=== PATIENT | male | born 1970 | race Asian ===

== ENCOUNTER 2023-08-09 16:26 | Emergency (ER) | payer BC ==
[~2023-08-09] VITALS: Ht 188 cm; Wt 108.4 kg
[2023-08-09 16:52] VITALS: BP_SYST 136; PULSE 69; RESP 16; TEMP 97.6; O2SAT 97
[2023-08-09 18:49] LABS: BASOPHILS # (AUTO) 0.1 K/uL (0.0-0.2); BASOPHILS % (AUTO) 0.9 % (0.0-2.0); EOSINOPHILS # (AUTO) 0.2 K/uL (0.0-0.4); EOSINOPHILS % (AUTO) 2.6 % (0.0-4.0); HEMATOCRIT 37.6 % (36-54); HEMOGLOBIN 11.9 g/dL (14.0-18.0); LYMPHOCYTES # (AUTO) 1.7 K/uL (1.0-5.5); LYMPHOCYTES % (AUTO) 18.9 % (20.5-51.5); MEAN CORPUSCULAR HEMOGLOBIN 23 pg (27-31); MEAN CORPUSCULAR HGB CONC 32 % (32-36); MEAN CORPUSCULAR VOLUME 74 fL (79.0-98.0); MONOCYTES # (AUTO) 0.7 K/uL (0.0-1.0); MONOCYTES % (AUTO) 7.7 % (1.7-9.3); NEUTROPHILS # (AUTO) 6.1 K/uL (1.8-7.7); NEUTROPHILS % (AUTO) 69.9 % (40.0-70.0); PLATELET COUNT (AUTO) 355 K/uL (130-430); RED BLOOD CELL COUNT(AUTO) 5.08 MIL/uL (4.2-6.2); WHITE BLOOD COUNT (AUTO) 8.8 K/uL (4.8-10.8)
[2023-08-09 19:06] LABS: BILIRUBIN,URINE 1+ (NEGATIVE); CLARITY/URINE CLEAR (CLEAR); COLOR,URINE YELLOW (YELLOW); GLUCOSE,URINE 3+ (NEGATIVE); KETONES,URINE 2+ (NEGATIVE); LEUKOCYTE ESTERASE ,URINE NEGATIVE (NEGATIVE); NITRITE, URINE NEGATIVE (NEGATIVE); PROTEIN URINE NEGATIVE (NEGATIVE); UROBILINOGEN,URINE 0.2 (0.2-1.0)
[2023-08-09 19:06] LABS: CREATININE 0.84 mg/dL (0.55-1.30); POTASSIUM 3.9 mmol/L (3.5-5.1)
[2023-08-09 19:11] LABS: ALBUMIN 3.4 g/dL (3.4-4.8); TOTAL BILIRUBIN 0.5 mg/dL (0.0-1.0); TOTAL PROTEIN, SERUM 8.5 g/dL (6.4-8.3)
[2023-08-09 19:15] LABS: BLOOD, URINE TRACE (NEGATIVE)
[2023-08-09 19:33] LABS: HEMOGLOBIN A1C 7.32 % (<5.7)
[2023-08-09 19:34] LABS: BACTERIA,URINE None Seen /HPF (None Seen)
[2023-08-09] MEDS ORDERED: CYCL10TA24 PO (19:43)
[2023-08-09] MEDS ORDERED: ACET325T53 PO (19:44)
[2023-08-09 19:46] VITALS: BP_SYST 136; PULSE 69; RESP 16; TEMP 97.6; O2SAT 97
== END 2023-08-09 19:46 | disposition home or self-care (01) ==
LOC: SED 16:26
DX: S42.352A Displaced comminuted fracture of shaft of humerus, left arm, initial encounter for closed fracture (principal); E11.9 Type 2 diabetes mellitus without complications; I10 Essential (primary) hypertension; Z79.899 Other long term (current) drug therapy; W01.0XXA Fall on same level from slipping, tripping and stumbling without subsequent striking against object, initial encounter; Y93.89 Activity, other specified; Y92.89 Other specified places as the place of occurrence of the external cause; Y99.8 Other external cause status
CPT/HCPCS: 36415; 73200-TC; 76376; 80053; 81000; 81001; 81015; 83037; 85025; 99284

== ENCOUNTER 2023-08-11 05:41 | Inpatient (IN) | payer BC, MEDICAID ==
[~2023-08-11] VITALS: Ht 188 cm; Wt 108.4 kg
[2023-08-11] VITALS (10 sets, daily range): BP systolic 120–144; PULSE 77–104; RESP 16–18; TEMP 97.2–97.8; O2SAT 78–98
[~2023-08-11 05:41] MED LIST: ACET325T53 PO; CYCL10TA24 PO
[2023-08-11] MEDS ORDERED: CYCL10TA24 PO (06:12)
[2023-08-11] MEDS ORDERED: ENAL2.5T17 (06:19)
[2023-08-11] MEDS ORDERED: ERTU15TA PO (06:19)
[2023-08-11] MEDS ORDERED: FLAS1KIT (06:19)
[2023-08-11] MEDS ORDERED: ROSU10TA29 (06:19)
[2023-08-11] MEDS ORDERED: DULO30CA52 PO (06:19)
[2023-08-11] MEDS ORDERED: ROSU20TA73 PO (06:19)
[2023-08-11] MEDS ORDERED: DILT-33 PO (06:19)
[2023-08-11] MEDS ORDERED: GLIP5TAB13 PO (06:19)
[2023-08-11] MEDS ORDERED: METF-381 PO (06:19)
[2023-08-11] MEDS ORDERED: ASPI-1393 PO (06:19)
[2023-08-11 06:42] LABS: BASOPHILS # (AUTO) 0.1 K/uL (0.0-0.2); BASOPHILS % (AUTO) 0.7 % (0.0-2.0); EOSINOPHILS # (AUTO) 0.2 K/uL (0.0-0.4); EOSINOPHILS % (AUTO) 2.2 % (0.0-4.0); HEMATOCRIT 36.4 % (36-54); HEMOGLOBIN 11.6 g/dL (14.0-18.0); LYMPHOCYTES # (AUTO) 1.6 K/uL (1.0-5.5); LYMPHOCYTES % (AUTO) 15.8 % (20.5-51.5); MEAN CORPUSCULAR HEMOGLOBIN 24 pg (27-31); MEAN CORPUSCULAR HGB CONC 32 % (32-36); MEAN CORPUSCULAR VOLUME 74 fL (79.0-98.0); MONOCYTES # (AUTO) 0.8 K/uL (0.0-1.0); MONOCYTES % (AUTO) 7.7 % (1.7-9.3); NEUTROPHILS # (AUTO) 7.3 K/uL (1.8-7.7); NEUTROPHILS % (AUTO) 73.6 % (40.0-70.0); PLATELET COUNT (AUTO) 373 K/uL (130-430); RED BLOOD CELL COUNT(AUTO) 4.89 MIL/uL (4.2-6.2); RED CELL DISTRIBUTION WIDTH 16.4 % (9.0-15.0); WHITE BLOOD COUNT (AUTO) 9.9 K/uL (4.8-10.8)
[2023-08-11 06:53] LABS: CREATININE 0.78 mg/dL (0.55-1.30); POTASSIUM 4.1 mmol/L (3.5-5.1)
[2023-08-11 06:57] LABS: ALBUMIN 3.3 g/dL (3.4-4.8); TOTAL BILIRUBIN 0.5 mg/dL (0.0-1.0); TOTAL PROTEIN, SERUM 8.7 g/dL (6.4-8.3)
[2023-08-11 06:58] LABS: PROTHROMBIN TIME 10.1 SECS (9.5-12.5)
[2023-08-11 07:09] LABS: BILIRUBIN,URINE 1+ (NEGATIVE); CLARITY/URINE CLEAR (CLEAR); COLOR,URINE YELLOW (YELLOW); GLUCOSE,URINE 3+ (NEGATIVE); KETONES,URINE 3+ (NEGATIVE); LEUKOCYTE ESTERASE ,URINE NEGATIVE (NEGATIVE); NITRITE, URINE NEGATIVE (NEGATIVE); PROTEIN URINE NEGATIVE (NEGATIVE); UROBILINOGEN,URINE 0.2 (0.2-1.0)
[2023-08-11 07:12] LABS: BLOOD, URINE TRACE (NEGATIVE)
[2023-08-11 07:46] LABS: BACTERIA,URINE FEW /HPF (None Seen); MUCUS,URINE 1+ /LPF (None Seen)
[2023-08-11] MEDS: D5/0.45 NS 1,000 ML IV SCH ×2 (08:25→16:47)
[2023-08-11] MEDS ORDERED: KETOROLAC TROMETHAMINE 30 MG VIAL IVP PRN (08:30)
[2023-08-11] MEDS ORDERED: KETOROLAC TROMETHAMINE 30 MG VIAL ONE ×2 (08:38→10:22)
[2023-08-11] MEDS ORDERED: BUPIVACAINE /PF 0.25% 30 ML VIAL INJ ONE (10:22)
[2023-08-11] MEDS ORDERED: MIDAZOLAM HCL/PF 2 MG/2 ML SYRINGE ONE (10:22)
[2023-08-11] MEDS ORDERED: SUGAMMADEX SODIUM 200 MG/2 ML VIAL IV ONE (10:22)
[2023-08-11] MEDS ORDERED: NS IRRIG SOLN 1000 ML IR ONE (10:22)
[2023-08-11] MEDS ORDERED: DEXAMETHASONE SOD PHOSPHATE 4 MG/ML VIAL ONE (10:22)
[2023-08-11] MEDS ORDERED: ONDANSETRON HCL 4 MG/2 ML VIAL ONE (10:22)
[2023-08-11] MEDS ORDERED: DESFLURANE 15 MIN GAS INH ONE (10:22)
[2023-08-11] MEDS ORDERED: LR 1,000 ML IV.SOLN IV ONE (10:22)
[2023-08-11] MEDS ORDERED: WATER FOR IRRIGATION,STERILE 1,000 ML IRRIG.SOLN IR ONE (10:22)
[2023-08-11] MEDS ORDERED: fentaNYL CITRATE/PF 100 MCG/2 ML AMP ONE (10:22)
[2023-08-11] MEDS ORDERED: ROCURONIUM BROMIDE 10 MG/ML (ZEMURON) ONE (10:22)
[2023-08-11] MEDS ORDERED: PROPOFOL 200MG/ 20ML VIAL (DIPRIVAN) IV ONE (10:22)
[2023-08-11] MEDS ORDERED: NALOXONE HCL 0.4 MG/ML AMP (NARCAN) IVP PRN ×3 (10:30)
[2023-08-11] MEDS ORDERED: ACETAMINOPHEN 325 MG TABLET PO PRN ×2 (10:30→12:45)
[2023-08-11] MEDS ORDERED: ONDANSETRON HCL 4 MG/2 ML VIAL IVP PRN (10:30)
[2023-08-11] MEDS ORDERED: HYDROcodone/ACETAMIN 5-325 MG TAB (NORCO/ VICODIN) PO PRN ×2 (10:30→13:00)
[2023-08-11] MEDS ORDERED: MORPHINE 2 MG/ML INJ. SYRINGE IVP PRN (10:30)
[2023-08-11] MEDS ORDERED: LORazepam 2 MG/ML VIAL IVP PRN (10:30)
[2023-08-11] MEDS ORDERED: MIDAZOLAM HCL 2 MG/2 ML VIAL (VERSED) IVP PRN (11:30)
[2023-08-11] MEDS ORDERED: hydrALAZINE HCL 20 MG/ML VIAL IVP PRN (11:30)
[2023-08-11] MEDS ORDERED: HYDROmorphone 1 MG/ML INJ. CARTRIDGE IVP PRN (11:30)
[2023-08-11] MEDS ORDERED: METOCLOPRAMIDE HCL 10 MG/2 ML VIAL IVP PRN (11:30)
[2023-08-11] MEDS ORDERED: LR 1,000 ML IV SCH (11:30)
[2023-08-11] MEDS ORDERED: LABETALOL 100 MG/ 20ML VIAL IVP PRN (11:30)
[2023-08-11] MEDS ORDERED: MEPERIDINE HCL/PF 25 MG/ML DISP.SYRIN IVP PRN (11:30)
[2023-08-11] MEDS ORDERED: ACETAMINOPHEN I.V. 1000 MG 100 ML IV ONE (11:54)
[2023-08-11] MEDS ORDERED: CYCLOBENZAPRINE HCL 10 MG TABLET (FLEXERIL) PO SCH (12:00)
[2023-08-11] MEDS ORDERED: HYDROmorphone 1 MG/ML INJ. CARTRIDGE ONE ×3 (13:35→14:41)
[2023-08-11] MEDS: HYDROmorphone 1 MG/ML INJ. CARTRIDGE IVP PRN ×5 (13:36→14:42)
[2023-08-11] MEDS ORDERED: IBUPROFEN 600 MG TABLET PO PRN (17:15)
[2023-08-11] MEDS ORDERED: cefTRIAXone 1 GM IVPB PREMIX 50 ML IV SCH (18:00)
[2023-08-11] MEDS: metFORMIN HCL 500 MG TABLET PO SCH (20:53)
[2023-08-11] MEDS ORDERED: ENALAPRIL MALEATE Non-Formular 5 MG TABLET PO SCH (21:00)
[2023-08-11] MEDS ORDERED: ASPIRIN 81 MG TABLET(ECOTRIN) PO SCH (21:00)
[2023-08-11] MEDS ORDERED: CYCLOBENZAPRINE HCL 10 MG TABLET (FLEXERIL) PO PRN (21:00)
[2023-08-11] MEDS ORDERED: ATORVASTATIN 20 MG TABLET PO SCH (21:00)
[2023-08-11] MEDS ORDERED: METFORMIN HCL PO SCH (21:00)
[2023-08-11] MEDS: INSULIN REGULAR, HUMAN 100 UNITS/ML, 3 ML VIAL (humuLIN R) SUBCUT PRN (21:11)
[2023-08-11] MEDS: CEFAZOLIN 2 GM IVPB PREMIX 50 ML IV SCH (22:21)
[2023-08-12 00:46] VITALS: BP_SYST 123; PULSE 89; RESP 18; TEMP 97.9; O2SAT 99
[2023-08-12] MEDS: D5/0.45 NS 1,000 ML IV SCH ×2 (02:41→12:15)
[2023-08-12 06:09] LABS: BASOPHILS % (AUTO) 0.2 % (0.0-2.0); HEMATOCRIT 30.9 % (36-54); HEMOGLOBIN 9.7 g/dL (14.0-18.0); LYMPHOCYTES # (AUTO) 0.8 K/uL (1.0-5.5); LYMPHOCYTES % (AUTO) 11.1 % (20.5-51.5); MEAN CORPUSCULAR HEMOGLOBIN 23 pg (27-31); MEAN CORPUSCULAR HGB CONC 32 % (32-36); MEAN CORPUSCULAR VOLUME 74 fL (79.0-98.0); MONOCYTES # (AUTO) 0.7 K/uL (0.0-1.0); MONOCYTES % (AUTO) 8.7 % (1.7-9.3); NEUTROPHILS # (AUTO) 6.1 K/uL (1.8-7.7); PLATELET COUNT (AUTO) 359 K/uL (130-430); RED CELL DISTRIBUTION WIDTH 16.2 % (9.0-15.0); WHITE BLOOD COUNT (AUTO) 7.6 K/uL (4.8-10.8)
[2023-08-12 06:48] LABS: CALCIUM 9.3 mg/dL (8.4-11.0); CREATININE 0.68 mg/dL (0.55-1.30); POTASSIUM 4.4 mmol/L (3.5-5.1)
[2023-08-12] MEDS: CEFAZOLIN 2 GM IVPB PREMIX 50 ML IV SCH (06:50)
[2023-08-12 08:01] VITALS: BP_SYST 140; PULSE 101; RESP 16; TEMP 98.6; O2SAT 98
[2023-08-12] MEDS: metFORMIN HCL 500 MG TABLET PO SCH (08:23)
[2023-08-12] MEDS ORDERED: ERTUGLIFLOZIN PIDOLATE PO SCH (09:00)
[2023-08-12] MEDS ORDERED: DILTIAZEM HCL 180 MG CAP.SR.24H PO SCH (09:00)
[2023-08-12] MEDS ORDERED: ASPIRIN 81 MG TABLET(ECOTRIN) PO SCH (09:00)
[2023-08-12] MEDS ORDERED: EMPAGLIFLOZIN 10 MG TABLET PO SCH (09:00)
[2023-08-12] MEDS ORDERED: DULoxetine HCL 30 MG CAPSULE.DR (CYMBALTA) PO SCH (09:00)
[2023-08-12] MEDS ORDERED: ATORVASTATIN 20 MG TABLET PO SCH (09:00)
[2023-08-12] MEDS ORDERED: glipiZIDE XL 5 MG TAB ( GLUCOTROL XL) PO SCH (09:00)
[2023-08-12] MEDS ORDERED: NON-FORMULARY MEDICATION (Rosuvastatin Calcium 1 TAB) PO SCH (09:00)
[2023-08-12] MEDS ORDERED: lisinopriL 5 MG TABLET PO SCH (09:00)
[2023-08-12 10:54] VITALS: O2SAT 97
[2023-08-12] MEDS: INSULIN REGULAR, HUMAN 100 UNITS/ML, 3 ML VIAL (humuLIN R) SUBCUT PRN (11:34)
[2023-08-12] MEDS ORDERED: IBUP-1969 PO (11:41)
[2023-08-12 12:00] VITALS: BP_SYST 135; PULSE 116; RESP 18; TEMP 98.8; O2SAT 97
[2023-08-12 14:03] VITALS: BP_SYST 136; PULSE 109; PULSE 120; RESP 18; TEMP 98.4; O2SAT 98
== END 2023-08-12 14:25 | disposition home or self-care (01) | DRG 315 ==
LOC: SED 05:41 → SMU 06:04
PROVIDERS: ADMIT Preventive Medicine Preventive Medicine/Occupational Environmental Medicine; ATTEND Preventive Medicine Preventive Medicine/Occupational Environmental Medicine
PROC: 0PSG04Z Reposition Left Humeral Shaft with Internal Fixation Device, Open Approach (ICD-10-PCS; principal; 2023-08-11 10:31)
DX: S42.212A Unspecified displaced fracture of surgical neck of left humerus, initial encounter for closed fracture (principal); S72.002A Fracture of unspecified part of neck of left femur, initial encounter for closed fracture; E44.0 Moderate protein-calorie malnutrition; E11.65 Type 2 diabetes mellitus with hyperglycemia; E88.09 Other disorders of plasma-protein metabolism, not elsewhere classified; I10 Essential (primary) hypertension; E78.5 Hyperlipidemia, unspecified; W18.39XA Other fall on same level, initial encounter; Y93.89 Activity, other specified; Y92.89 Other specified places as the place of occurrence of the external cause; Y99.8 Other external cause status; Z79.82 Long term (current) use of aspirin; Z79.899 Other long term (current) drug therapy; Z68.30 Body mass index [BMI] 30.0-30.9, adult
CPT/HCPCS: 36415; 71045; 76001; 80048; 80053; 81000; 81001; 81015; 82962; 85025; 85610-TC; 85730-TC; 87081; 87086; 93005; 96374; 99285; J0131; J0690; J0696; J1100; J1170; J1815; J1885; J2405; J2704; J3010; J3465; J3490; J7120; Q9967